=== PATIENT | male | born 1975 | race Caucasian/White ===

== ENCOUNTER 2025-04-11 15:22 | Emergency (ER) | payer SELFPAY ==
[2025-04-11] MEDS ORDERED: Sodium Chloride 0.9% 10 ML Syringe FLUSH PRN (15:42)
[2025-04-11] MEDS: Sodium Chloride 0.9% 1,000 ML IV ONE (15:49)
[2025-04-11] MEDS: Lactated Ringers 1,000 ML IV ONE ×2 (16:07→17:14)
[2025-04-11] MEDS: cefTRIAXone 2 GM Vial IVPUSH ONE (16:16)
[2025-04-11 16:18] LABS: HEMATOCRIT 36.6 % (40.0-54.0); HEMOGLOBIN 12.4 g/dL (14.0-18.0); MEAN CORPUSCULAR HEMOGLOBIN 31.2 pg (27.0-34.0); MEAN CORPUSCULAR HGB CONC 33.9 g/dL (33.0-35.0); MEAN CORPUSCULAR VOLUME 92.2 fL (80-100); PLATELET COUNT,PLT 194 10^3/uL (150-450); RED BLOOD CELL COUNT 3.97 10^6/uL (4.6-6.2); WHITE BLOOD CELL COUNT,WBC 7.2 10^3/uL (5.0-10.0)
[2025-04-11 16:18] LABS: O2 DELIVERY DEVICE ROOM AIR
[2025-04-11 16:19] LABS: BICARBONATE,VENOUS 16 mmol/l (19-25); O2 SATURATION VENOUS 43.8 % (60-80); PCO2 VENOUS 36 mmHg (41-51); PH,VENOUS 7.28 (7.31-7.41); PO2 VENOUS 41 mmHg (35-42)
[2025-04-11 16:20] LABS: BASE EXCESS VENOUS -9.4 mmol/l ((-2)-(+3))
[2025-04-11 16:21] LABS: EOSINOPHILS PERCENT AUTO 0.4 % (1.0-3.0); LYMPHOCYTES PERCENT AUTO 2.5 % (20.5-50.1); MONOCYTES PERCENT AUTO 6.2 % (2-8); NEUTROPHILS PERCENT AUTO 90.8 % (42.2-75.2)
[2025-04-11 16:22] LABS: BASOPHILS PERCENT AUTO 0.1 % (0.0-1.0)
[2025-04-11 16:49] LABS: ALBUMIN 3.3 g/dL (3.4-5.0); ANION GAP 22.9 mEq/L (7-13); BILIRUBIN TOTAL 2.4 mg/dL (0.2-1.0); BUN/CREATININE RATIO 9.3 (No establ ref range); CREATININE 3.89 mg/dL (0.70-1.30); EST CRCL DRUG DOSING (CG) 24.66 mL/min; MAGNESIUM 1.2 mg/dL (1.8-2.4); POTASSIUM,K 3.9 mmol/L (3.5-5.1); PROTEIN TOTAL,TP 7.1 g/dL (6.4-8.2)
[2025-04-11 16:50] LABS: A/G RATIO 0.87
[2025-04-11 17:05] LABS: EOSINOPHILS PERCENT MAN 1 % (1-3); LYMPHOCYTES PERCENT MAN 2 % (20-50); MONOCYTES PERCENT MAN 5 % (2-8); SEG NEUTROPHILS PERCENT MAN 92 % (42-75)
[2025-04-11] MEDS: HYDROmorphone 0.5 MG/0.5 ML Syringe IVPUSH ONE (18:08)
[2025-04-11 18:13] VITALS: PULSE 105
[2025-04-11 18:25] LABS: APPEARANCE,URINE SLIGHTLY CLOUDY (CLEAR); BILIRUBIN,URINE NEGATIVE (NEGATIVE); COLOR,URINE DARK YELLOW (YELLOW); GLUCOSE,URINE NEGATIVE (NEGATIVE); KETONES,URINE NEGATIVE (NEGATIVE); LEUKOCYTE ESTERASE,URINE SMALL (NEGATIVE); NITRITE,URINE NEGATIVE (NEGATIVE); OCCULT BLOOD,URINE SMALL (NEGATIVE); PROTEIN,URINE 100 (NEGATIVE)
[2025-04-11 18:36] LABS: BACTERIA,URINE MANY /HPF (0-FEW/HPF); EPITHELIAL CELLS,URINE FEW /HPF (NOT SEEN); WBC,URINE 30-40 /HPF (0-5/HPF)
[2025-04-11 18:37] LABS: AMORPHOUS SEDIMENT,URINE FEW /HPF (NOT SEEN)
[2025-04-11 19:06] VITALS: BP 107/64
== END 2025-04-11 19:18 ==
LOC: DL.ED 15:22
DX: A41.9 Sepsis, unspecified organism (principal); R65.21 Severe sepsis with septic shock; N17.9 Acute kidney failure, unspecified; L03.114 Cellulitis of left upper limb; E86.0 Dehydration; I25.10 Atherosclerotic heart disease of native coronary artery without angina pectoris; E78.00 Pure hypercholesterolemia, unspecified; I10 Essential (primary) hypertension; E11.9 Type 2 diabetes mellitus without complications; Z91.041 Radiographic dye allergy status; Z88.8 Allergy status to other drugs, medicaments and biological substances; Z79.51 Long term (current) use of inhaled steroids; Z79.82 Long term (current) use of aspirin; Z79.899 Other long term (current) drug therapy; Z79.890 Hormone replacement therapy
CPT/HCPCS: 36415; 71045; 71275; 73201; 80053; 81001; 82803; 82947; 83605; 83735; 84145; 85025; 87040; 87086; 93005; 93010; 96361; 96374; 96375; 99285-25; 99291; J0696; J7030; J7120